=== PATIENT | male | born 1980 | race Caucasian/White ===

== ENCOUNTER 2019-11-17 19:10 | Emergency (ER) | payer OTHER ==
[~2019-11-17] VITALS: Ht 172.7 cm; Wt 122.5 kg
[2019-11-17 19:10] VITALS: BP 146/103
--- NOTE | 2019-11-17 21:23 | NUR ---
RAPID STREP SWAB DONE
[2019-11-17] MEDS ORDERED: predniSONE 20 MG TABLET ONE (21:24)
[2019-11-17] MEDS ORDERED: predniSONE 20 MG TABLET PO ONE (21:30)
[2019-11-17] MEDS ORDERED: FAMOTIDINE (20 MG) 20 MG TABLET PO ONE (22:00)
[2019-11-17] MEDS ORDERED: FAMOTIDINE (20 MG) 20 MG TABLET ONE (22:06)
== END 2019-11-17 22:55 | disposition home or self-care (01) ==
LOC: ER 19:18
DX: L23.9 Allergic contact dermatitis, unspecified cause (principal); J02.8 Acute pharyngitis due to other specified organisms; B97.89 Other viral agents as the cause of diseases classified elsewhere; F17.200 Nicotine dependence, unspecified, uncomplicated
CPT/HCPCS: 87070; 87880; 99283; J7512; 86403-TC

== ENCOUNTER 2022-06-20 01:25 | Emergency (ER) | payer OTHER ==
[~2022-06-20] VITALS: Ht 172.7 cm; Wt 115.7 kg
[2022-06-20] MEDS ORDERED: CYCL15CA23 PO (02:50)
[2022-06-20] MEDS ORDERED: KETOROLAC TROMETHAMINE INJ 60 MG/2 ML VIAL IM ONE ×2 (02:52→03:00)
[2022-06-20 02:56] VITALS: BP 138/88
--- NOTE | 2022-06-20 02:56 | NUR ---
Patient discharged to home in stable condition. Written and verbal after care instructions given. Patient verbalizes understanding of instruction.
[2022-06-20] MEDS ORDERED: HYDR-4275 PO (22:45)
== END 2022-06-20 03:00 | disposition home or self-care (01) ==
LOC: ER 01:26
DX: M54.31 Sciatica, right side (principal); M25.551 Pain in right hip; F17.200 Nicotine dependence, unspecified, uncomplicated
CPT/HCPCS: 99283; 96372; J1885

== ENCOUNTER 2022-06-20 19:41 | Emergency (ER) | payer OTHER ==
[~2022-06-20] VITALS: Ht 172.7 cm; Wt 113.4 kg
[~2022-06-20 19:41] MED LIST: CYCL15CA23 PO
--- NOTE | 2022-06-20 21:30 | NUR ---
BIBS C/O LOWER BACK PAIN X 5 DAYS, WAS SEEN IN ER YESTERDAY. PLACED COMFORTABLY IN BED. VITALS CHECKED.
--- NOTE | 2022-06-20 21:47 | NUR ---
PT WHEELED TO CT DEPT.
--- NOTE | 2022-06-20 22:26 | NUR ---
PATIENT BEEN GOING AROUND OUTSIDE THE ROOM. REDIRECTED BACK TO ROOM. ASKED IF WHAT POSITIONED MAKES PAIN WORSE, PER PT STANDING. HELPED PATIENT POSITIONED BACK TO BED.
[2022-06-20] MEDS ORDERED: HYDROCODONE/APAP 5/325MG TABLET ONE (22:43)
[2022-06-20] MEDS ORDERED: CYCLOBENZAPRINE 10 MG TABLET ONE (22:44)
[2022-06-20] MEDS ORDERED: HYDR-4275 PO (22:45)
[2022-06-20 22:51] VITALS: BP 145/98
[2022-06-20] MEDS ORDERED: CYCLOBENZAPRINE 10 MG TABLET PO ONE (23:00)
[2022-06-20] MEDS ORDERED: HYDROCODONE/APAP 5/325MG TABLET PO ONE (23:00)
== END 2022-06-20 22:54 | disposition home or self-care (01) ==
LOC: ER 19:43
DX: M54.41 Lumbago with sciatica, right side (principal); F17.200 Nicotine dependence, unspecified, uncomplicated; Z79.899 Other long term (current) drug therapy
CPT/HCPCS: 72131-TC

== ENCOUNTER 2022-07-03 08:53 | Emergency (ER) | payer OTHER ==
[~2022-07-03] VITALS: Ht 172.7 cm; Wt 113.4 kg
[~2022-07-03 08:53] MED LIST changes: +HYDR-4275 PO
--- NOTE | 2022-07-03 09:03 | NUR ---
called for triage not inthe waiting room.
[2022-07-03] MEDS ORDERED: GABA600T12 PO (09:33)
[2022-07-03] MEDS ORDERED: CYCL5TAB PO (09:33)
[2022-07-03] MEDS ORDERED: KETOROLAC TROMETHAMINE INJ 30 MG/ML VIAL ONE (09:35)
[2022-07-03 09:43] VITALS: BP 135/89
--- NOTE | 2022-07-03 09:44 | NUR ---
Patient discharged to home in stable condition. Written and verbal after care instructions given. Patient verbalizes understanding of instruction.
[2022-07-03] MEDS ORDERED: KETOROLAC TROMETHAMINE INJ 30 MG/ML VIAL IM ONE (10:00)
== END 2022-07-03 09:44 | disposition home or self-care (01) ==
LOC: ER 08:55
DX: M54.41 Lumbago with sciatica, right side (principal); F17.200 Nicotine dependence, unspecified, uncomplicated
CPT/HCPCS: 99283; 96372; J1885